=== PATIENT | female | born 1965 | race Caucasian/White ===

== ENCOUNTER 2024-04-01 09:17 | Day surgery (SDC) | payer BC ==
[2024-04-01 09:36] VITALS: BMI 36.2
[2024-04-01 11:05] VITALS: TEMP 98
[2024-04-01 11:20] VITALS: BP 107/72; PULSE 85; RESP 20
== END 2024-04-01 11:53 | disposition home or self-care (01) ==
LOC: FASU-ENDO 09:17
PROVIDERS: ATTEND Internal Medicine Gastroenterology
PROC: 0DBN8ZX Excision of Sigmoid Colon, Via Natural or Artificial Opening Endoscopic, Diagnostic (ICD-10-PCS; 2024-04-01)
PROC: 0DBN8ZX Excision of Sigmoid Colon, Via Natural or Artificial Opening Endoscopic, Diagnostic (ICD-10-PCS; principal; 2024-04-01 10:22)
DX: Z12.11 Encounter for screening for malignant neoplasm of colon (principal); D12.7 Benign neoplasm of rectosigmoid junction; K63.5 Polyp of colon
CPT/HCPCS: 88305-TC